=== PATIENT | female | born 1990 | race Caucasian/White ===

== ENCOUNTER 2018-06-10 09:18 | Emergency (ER) | payer OTHER ==
[~2018-06-10] VITALS: Ht 177.8 cm; Wt 68.0 kg
[2018-06-10 09:59] VITALS: BP 148/77
[2018-06-10] MEDS ORDERED: LIDOCAINE HCL/PF 1% 30 ML VIAL TP ONE (11:00)
[2018-06-10] MEDS ORDERED: LIDOCAINE 1% INJ 50 ML MDV IJ ONE (11:05)
== END 2018-06-10 11:31 | disposition home or self-care (01) ==
LOC: ER 09:21
DX: S20.212A Contusion of left front wall of thorax, initial encounter (principal); N75.1 Abscess of Bartholin's gland; Z98.890 Other specified postprocedural states; X58.XXXA Exposure to other specified factors, initial encounter; Y93.89 Activity, other specified; Y92.89 Other specified places as the place of occurrence of the external cause; Y99.8 Other external cause status
CPT/HCPCS: 56420; 71100; 99283; A4606; A6402; J3490 ×2

== ENCOUNTER 2018-06-12 06:30 | Emergency (ER) | payer OTHER ==
[~2018-06-12] VITALS: Ht 162.6 cm; Wt 54.4 kg
[2018-06-12 06:52] VITALS: BP 121/73
--- NOTE | 2018-06-12 07:44 | NUR ---
CALLED ANUJA [phone] NOT AT OFFICE. SO [phone] [place] [facility] [place]
[2018-06-12] MEDS ORDERED: LIDOCAINE HCL/PF 1% 30 ML VIAL TP ONE (08:00)
[2018-06-12] MEDS ORDERED: LIDOCAINE HCL/PF 1% 30 ML SDV ONE (08:11)
--- NOTE | 2018-06-12 08:24 | NUR ---
I &D DONE BY DR SO WITH FEMALE [employer],TOLERATED WELL
== END 2018-06-12 08:26 | disposition home or self-care (01) ==
LOC: ER 06:30
DX: N75.1 Abscess of Bartholin's gland (principal); Z98.890 Other specified postprocedural states
CPT/HCPCS: A6402; J3490; Z7502